=== PATIENT | female | born 1965 | race Caucasian/White ===

== ENCOUNTER 2021-08-30 22:58 | Emergency (ER) | payer MEDICAID ==
[~2021-08-30] VITALS: Ht 172.7 cm; Wt 90.7 kg
[2021-08-30 23:00] VITALS: BP 135/87
--- NOTE | 2021-08-30 23:05 | NUR ---
Patient ambulated to bed 12.
--- NOTE | 2021-08-30 23:10 | NUR ---
C/O abscess x 1 week. Patient reported, had abscess right buttock for one week, no fever. PMHx: DENIES
--- NOTE | 2021-08-30 23:13 | NUR ---
C/O abscess x 1 week. Patient reported, had abscess right buttock for one week, no fever. PMHx: DENIES
--- NOTE | 2021-08-30 23:15 | NUR ---
Dr. Suazo examining patient.
[2021-08-30] MEDS ORDERED: ACET-10509 PO (23:23)
[2021-08-30] MEDS ORDERED: SULF-59 PO (23:23)
[2021-08-30 23:25] VITALS: BP 135/87
--- NOTE | 2021-08-30 23:25 | NUR ---
Patient discharged with v/s stable. Written and verbal after care instructions given and explained. Patient alert, oriented and verbalized understanding of instructions. Ambulatory with steady gait. All questions addressed prior to discharge. ID band removed. Patient advised to follow up with PMD. Rx of BACTRIM, AND EXTRA STRENGTH TYLENOL given. Patient educated on indication of medication including possible reaction and side effects. Opportunity to ask questions provided and answered.
== END 2021-08-30 23:25 | disposition home or self-care (01) ==
LOC: MED 22:58
DX: L02.31 Cutaneous abscess of buttock (principal); F17.210 Nicotine dependence, cigarettes, uncomplicated; Z79.899 Other long term (current) drug therapy; Z79.2 Long term (current) use of antibiotics
CPT/HCPCS: 99283